=== PATIENT | female | born 1975 | race Hispanic/Latino ===

== ENCOUNTER 2023-09-29 14:01 | Emergency (ER) | payer SELFPAY ==
[2023-09-29] MEDS ORDERED: Dexamethasone 10 MG/ML VIAL ONE (14:54)
== END 2023-09-29 15:00 | disposition home or self-care (01) ==
LOC: BURERS 14:01
DX: L23.7 Allergic contact dermatitis due to plants, except food (principal); E11.9 Type 2 diabetes mellitus without complications
CPT/HCPCS: 96372; 99282; J1100